=== PATIENT | female | born 1965 | race Caucasian/White ===

== ENCOUNTER 2016-07-22 08:17 | Emergency (ER) | payer OTHER ==
[2016-07-22 08:22] VITALS: BP 103/72
--- NOTE | 2016-07-22 08:29 | ED GENERAL ADULT ---
History of Present Illness General Chief Complaint: General Adult Stated Complaint: MEDICATION REFILL Source: patient, old records Exam Limitations: no limitations Vital Signs & Intake/Output Vital Signs & Intake/Output Vital Signs Date Time Temp Pulse Resp B/P Pulse O2 O2 Flow FiO2 Ox Delivery Rate 07/22 0822 98.3 87 20 103/72 98 Room Air Allergies Coded Allergies: MDX - Propoxyphene (UNKNOWN 02/10/12) Uncoded Allergies: COLD MEDICATION / DECONGESTANTS (Severe, ANAPHYLACTIC SHOCK 02/06/11) ANTIHISTAMINE COMBINATIONS (11/21/10) Reconcile Medications Clonazepam 0.5 MG TABLET 1 TAB PO DAILY anxiety Lamotrigine (Lamictal) 25 MG TABLET 2 TAB PO QHS anxiety/depression Trazodone HCl 100 MG TABLET 1 TAB PO QPM anxiety/sleep Triage Note: PT REQUESTS REFILL ON LOMICTAL, TRAZADONE AND KLONAPIN. [facility]PT WITH [facility] ON Jul Triage Nurses Notes Reviewed? yes Onset: Gradual Duration: day(s): (1) Timing: no prior history Injury Environment: home Severity: moderate Severity Numbers: 5 No Modifying Factors: none HPI: Patient is a 51-year-old female presenting to the emergency department requesting refills on medications that she takes daily. Prescription she is requesting are Lamictal, trazodone and clonazepam. She reports that her son recently kicked out of the house and she was unable to take her medications. She reports that this was in [place]. She is now back in [place]. Her last dose of her medications was 1-2 days ago. Denies any palpitations chest pain nausea vomiting fevers or chills. She made an appointment with [facility] August 04 but was told to come to emergency department medications to hold her over until then. Denies any homicidal or suicidal ideation. Denies any increased depression or anxiety. (LILI NUNN) Past History Travel History Traveled to [place] past 21 day No Medical History Any Pertinent Medical History? see below for history Psychiatric: bipolar disease Pneumonia Vaccine: 03/29/12 Influenza Vaccine: 03/29/12 Surgical History Surgical History: non-contributory Psychosocial History Who do you live with Son Services at Home None What is your primary language Turkmen Tobacco Use: Current Daily Use Daily Tobacco Use Amount/Type: => 5 Cigarettes daily ETOH Use: occasional use Illicit Drug Use: denies illicit drug use Family History Family History, If Any: Relation not specified for: Adopted Hx Contributory? No (LILI NUNN) Review of Systems Review of Systems Constitutional: Reports: no symptoms. Comments Review of systems: See HPI, All other systems negative. Constitutional, no chills fever or weight loss HEENT: No visual changes no sore throat no congestion Cardiovascular: No chest pain ,palpitation Skin, no jaundice no rashes Respiratory: No dyspnea cough sputum or hemoptysis GI: No nausea no vomiting : No dysuria No hematuria Muscle skeletal: no back pain, no neck pain, Neurologic: No numbness no confusion Psych: No increased stress anxiety or depression,. Immunology: No splenectomy or history of AIDS (LILI NUNN) Physical Exam Physical Exam General Appearance: well developed/nourished, no apparent distress, alert, awake , comfortable Comments: Well-developed well-nourished no apparent distress. HEENT: Atraumatic, extraocular motion intact Neck: Supple, no lymphadenopathy Back: Nontender Respiratory: No respiratory distress Extremities: No edema, full range of motion Neuro: Alert and oriented x3 Psych: Mood affect normal, normal memory normal judgment. Core Measures ACS in differential dx? No CVA/TIA Diagnosis: No Severe Sepsis Present: No Septic Shock Present: No (LILI NUNN) Progress Differential Diagnoses I considered the following diagnoses in my evaluation of the patient: Medication refill, medication taking, bipolar disorder, generalized anxiety, major depressive disorder Plan of Care: 07/22/2016 8:42:14 AM patient given enough medications to hold her over until August 04. She was told to return to the emergency department for any worsening symptoms or concerns. Patient not suicidal or homicidal. Patient is mentating well, does not appear anxious. Initial ED EKG: none (LILI NUNN) Departure Departure Time of Disposition: 834 Disposition: HOME OR SELF CARE Condition: Stable Clinical Impression Primary Impression: Medication refill Referrals: ABRAM RAE,BARBY Pineda (PCP/Family) Additional Instructions: Follow-up with your primary care physician and Care as scheduled for August 04. You were given enough medications to hold G over until then. Departure Forms: Customer Survey General Discharge Information Prescriptions: Current Visit Scripts Trazodone HCl 1 TAB PO QPM #14 TAB Clonazepam 1 TAB PO DAILY #14 TAB Lamotrigine (Lamictal) 2 TAB PO QHS #28 TAB (LILI NUNN) PA/LINUX SYSTEMS ANALYST Co-Sign Statement Statement: ED Attending supervision documentation- [] I saw and evaluated the patient. I have also reviewed all the pertinent lab results and diagnostic results. I agree with the findings and the plan of care as documented in the PA's/LINUX SYSTEMS ANALYST's documentation. x I have reviewed the ED Record and agree with the PA's/LINUX SYSTEMS ANALYST's documentation. [] Additions or exceptions (if any) to the PAs/LINUX SYSTEMS ANALYST's note and plan are summarized below: [] (KATLIN RAE,ISABELLE) Critical Care Note Critical Care Note Critical Care Time: non-applicable (LILI NUNN)
[2016-07-22] MEDS ORDERED: TRAZODONE HCL100 M1 PO (08:34)
[2016-07-22] MEDS ORDERED: LAMICTAL25 M1 PO (08:34)
[2016-07-22] MEDS ORDERED: CLONAZEPAM0.5 M2 PO (08:34)
== END 2016-07-22 08:39 ==
LOC: ERH 08:17
DX: Z76.0 Encounter for issue of repeat prescription (principal)
CPT/HCPCS: 99281

== ENCOUNTER 2016-08-04 11:50 | Emergency (ER) | payer OTHER ==
[~2016-08-04] VITALS: Ht 167.6 cm; Wt 75.3 kg
[~2016-08-04 11:50] MED LIST: CLONAZEPAM0.5 M2 PO; LAMICTAL25 M1 PO; TRAZODONE HCL100 M1 PO
[2016-08-04 11:54] VITALS: BP 107/67
[2016-08-04] MEDS ORDERED: MORPHINE SULFAT30 M3 PO (12:35)
[2016-08-04] MEDS ORDERED: NIASPAN500 M1 PO (12:35)
[2016-08-04] MEDS ORDERED: LOVASTATIN40 M1 PO (12:35)
[2016-08-04] MEDS ORDERED: ASPIRIN EC81 M1 PO (12:36)
[2016-08-04] MEDS ORDERED: PANTOPRAZOLE SO40 M1 PO (12:36)
[2016-08-04] MEDS ORDERED: OXYCODONE HCL10 M2 PO (12:36)
[2016-08-04] MEDS ORDERED: LAMICTAL25 M1 PO (13:26)
[2016-08-04] MEDS ORDERED: KLONOPIN0.5 M1 PO (13:26)
[2016-08-04] MEDS ORDERED: TRAZODONE HCL50 M1 PO (13:26)
--- NOTE | 2016-08-04 13:26 | ED GENERAL ADULT ---
History of Present Illness General Chief Complaint: General Adult Stated Complaint: MED REFILL Source: patient Exam Limitations: no limitations Vital Signs & Intake/Output Vital Signs & Intake/Output Vital Signs Date Time Temp Pulse Resp B/P Pulse O2 O2 Flow FiO2 Ox Delivery Rate 08/04 1154 98.2 118 18 107/67 99 Room Air Allergies Coded Allergies: propoxyphene (UNKNOWN 08/04/16) Uncoded Allergies: COLD MEDICATION / DECONGESTANTS (Severe, ANAPHYLACTIC SHOCK 02/06/11) ANTIHISTAMINE COMBINATIONS (11/21/10) Triage Note: 51 Y/O FEMALE STATES SENT HER TO ED FOR REFILL OF: LAMICTAL 50MG DAILY, KLONOPIN 0.5MG DAILY, TRAZADONE 100MG AT NIGHT. STATES SHE IS UNABLE TO SEE DOCTOR UNTIL SEPTEMBER. Triage Nurses Notes Reviewed? yes HPI: This patient is a 51-year-old female with a past medical history including anxiety, chronic headaches, and bipolar disorder who presented to the emergency department today requesting medication refills. The patient reported that she does not have another appointment with until September. She reported that she has an appointment with her primary care physician scheduled for the of this month. She reported that she is currently out of her trazodone, Lamictal, and Klonopin. The patient denied any fevers, current headache, visual changes, chest pain, breathing, or abdominal pain. (CARMEN ROCKWELL,MALLIKA) Reconcile Medications Aspirin (Ecotrin*) 81 MG TABLET.DR 1 TAB PO DAILY HEART HEALTH (Reported) Clonazepam 0.5 MG TABLET 1 TAB PO DAILY anxiety Clonazepam (Klonopin) 0.5 MG TABLET 1 TAB PO DAILY ANXIETY Lamotrigine (Lamictal) 25 MG TABLET 2 TAB PO QHS anxiety/depression Lamotrigine (Lamictal) 25 MG TABLET 2 TAB PO DAILY Lovastatin 40 MG TABLET 1 TAB PO QPM CHOLESTEROL (Reported) with food Morphine Sulfate (Morphine Sulfate ER) 30 MG TABLET.ER 1 TAB PO DAILY PAIN ( Reported) Niacin (Niaspan) 500 MG TAB.ER.24H 1 TAB PO QPM HEART (Reported) Oxycodone HCl 10 MG TABLET 1 TAB PO TID PAIN (Reported) Pantoprazole Sodium 40 MG TABLET.DR 1 TAB PO DAILY GI (Reported) Trazodone HCl 100 MG TABLET 1 TAB PO QPM anxiety/sleep Trazodone HCl 50 MG TABLET 1 TAB PO QPM PRN sleep (JUAN NEAL DO) Past History Travel History Traveled to [place] past 21 day No Medical History Any Pertinent Medical History? see below for history Neurological: migraine EENT: NONE Cardiovascular: NONE Respiratory: NONE Gastrointestinal: NONE Hepatic: NONE Renal: NONE Musculoskeletal: NONE Psychiatric: anxiety, bipolar disease Endocrine: NONE Blood Disorders: NONE Cancer(s): NONE PROFESSOR OF GERMAN/Reproductive: NONE Surgical History Surgical History: non-contributory Psychosocial History Who do you live with Son Services at Home None What is your primary language German Tobacco Use: Current Daily Use Daily Tobacco Use Amount/Type: => 5 Cigarettes daily Family History Family History, If Any: Relation not specified for: Adopted Hx Contributory? No (MALLIKA MORALES PA-C) Review of Systems Review of Systems Constitutional: Reports: no symptoms. EENTM: Reports: no symptoms. Respiratory: Reports: no symptoms. Cardiovascular: Reports: no symptoms. GI: Reports: no symptoms. Genitourinary: Reports: no symptoms. Musculoskeletal: Reports: no symptoms. Skin: Reports: no symptoms. Neurological/Psychological: Reports: no symptoms. All Other Systems: Reviewed and Negative (MALLIKA MORALES PA-C) Physical Exam Physical Exam General Appearance: well developed/nourished, no apparent distress, alert, awake Comments: Well-developed well-nourished person in no acute distress HEENT: Normal EENT exam, head normocephalic, moist mucous membranes Pupils equally round and reactive to light. Neck: Supple, no lymphadenopathy Back: Normal gait Cardiovascular: Regular rate and rhythm with no murmurs, rubs or gallops Respiratory: Chest nontender. No respiratory distress. Breath sounds clear to auscultation bilaterally with no wheezes, rales, rhonchi Extremities: Normal and equal pulses Neuro: Alert oriented x3, cranial nerves II through XII grossly intact. Skin: No appreciable rash on exposed skin, skin is warm and dry. Psych: Mood and affect is normal Core Measures ACS in differential dx? No CVA/TIA Diagnosis: No Severe Sepsis Present: No Septic Shock Present: No (MALLIKA MORALES PA-C) Progress Differential Diagnoses I considered the following diagnoses in my evaluation of the patient: [ medication seeking, medication refill, anxiety, medication reaction] Plan of Care: This patient is a 51 year old female who presented for medication refill of trazodone, Lamictal, and Klonopin. Based on this patient's medication reconciliation, she does not have any active prescriptions for these medications. No other complaints. Stable for discharge home with follow-up with her primary care physician. Initial ED EKG: none (MALLIKA MORALES PA-C) Departure Departure Disposition: HOME OR SELF CARE Condition: Stable Clinical Impression Primary Impression: Medication refill Referrals: BARBY VALVERDE MD (PCP/Family) Additional Instructions: please follow-up with your primary care physician as previously scheduled. Take medication as prescribed. Return for any worsening symptoms or concerns. Departure Forms: Customer Survey General Discharge Information Prescriptions: Current Visit Scripts Trazodone HCl 1 TAB PO QPM PRN sleep #14 TAB Lamotrigine (Lamictal) 2 TAB PO DAILY #28 TAB Clonazepam (Klonopin) 1 TAB PO DAILY #14 TAB (MALLIKA MORALES PA-C) PA/FUR FEEDER Co-Sign Statement Statement: ED Attending supervision documentation- [] I saw and evaluated the patient. I have also reviewed all the pertinent lab results and diagnostic results. I agree with the findings and the plan of care as documented in the PA's/FUR FEEDER's documentation. [X] I have reviewed the ED Record and agree with the PA's/FUR FEEDER's documentation. [] Additions or exceptions (if any) to the PAs/FUR FEEDER's note and plan are summarized below: [] (JUAN NEAL DO) Critical Care Note Critical Care Note Critical Care Time: non-applicable (MALLIKA MORALES PA-C)
== END 2016-08-04 13:29 ==
LOC: ERH 11:50
DX: F41.9 Anxiety disorder, unspecified (principal); Z76.0 Encounter for issue of repeat prescription
CPT/HCPCS: 99281

== ENCOUNTER 2016-08-15 16:08 | Emergency (ER) | payer OTHER ==
[~2016-08-15] VITALS: Ht 167.6 cm; Wt 76.7 kg
[~2016-08-15 16:08] MED LIST changes: +ASPIRIN EC81 M1 PO; +KLONOPIN0.5 M1 PO; +LOVASTATIN40 M1 PO; +MORPHINE SULFAT30 M3 PO; +NIASPAN500 M1 PO; +OXYCODONE HCL10 M2 PO; +PANTOPRAZOLE SO40 M1 PO; +TRAZODONE HCL50 M1 PO
--- NOTE | 2016-08-15 18:04 | ED UPPER/LOWER EXTREMITY COMPL ---
History of Present Illness General Chief Complaint: Upper Extremity Problem Stated Complaint: PT LT SHOULDER HAS PAIN FOR FOUR MONTHS Source: patient Exam Limitations: no limitations Vital Signs & Intake/Output Vital Signs & Intake/Output Vital Signs Date Time Temp Pulse Resp B/P Pulse O2 O2 Flow FiO2 Ox Delivery Rate 08/15 1931 97.6 88 16 134/76 Room Air 08/15 1617 97.9 81 20 128/83 97 Room Air ED Intake and Output 08/16 0000 08/15 1200 Intake Total 0 Output Total Balance 0 Intake, Oral 0 Patient 169 lb Weight Allergies Coded Allergies: propoxyphene (VOMITING VIOLENTLY 08/15/16) Uncoded Allergies: COLD MEDICATION / DECONGESTANTS (Severe, ANAPHYLACTIC SHOCK 02/06/11) ANTIHISTAMINE COMBINATIONS (11/21/10) Reconcile Medications Aspirin (Ecotrin*) 81 MG TABLET.DR 1 TAB PO DAILY HEART HEALTH (Reported) Clonazepam (Klonopin) 0.5 MG TABLET 1 TAB PO DAILY ANXIETY Clonidine HCl (Unknown Strength) TABLET (Unknown Dose) UNKNOWN (Reported) Lamotrigine 100 MG TABLET 1 TAB PO DAILY MENTAL HEALTH (Reported) Lovastatin 40 MG TABLET 1 TAB PO QPM CHOLESTEROL (Reported) with food Methylprednisolone. (Medrol) 4 MG TAB.DS.PK 1 DP PO AD TENDINITIS 6 on day 1 then reduce by one tablet daily until gone Morphine Sulfate (Morphine Sulfate ER) 30 MG TABLET.ER 1 TAB PO DAILY PAIN ( Reported) Niacin (Niaspan) 500 MG TAB.ER.24H 1 TAB PO QPM HEART (Reported) Oxycodone HCl/Acetaminophen (Percocet 5-325 MG Tablet) 5 MG-325 MG TABLET 1 TAB PO Q6HR PRN PAIN Pantoprazole Sodium 40 MG TABLET.DR 1 TAB PO DAILY GI (Reported) Trazodone HCl 150 MG TABLET 1 TAB PO QPM SLEEP (Reported) Triage Note: TRIAGE: PT TO ER C/C PAIN FROM L SHOULDER TO ELBOW AND "SOMETIMES EVEN" TO HER HAND X APPROXIMATELY 4 MONTHS. CONSTANT AND NOW WORSENING SINCE ONSET. HAS TRIED MORPHINE, OXYCODONE, IBUPROFEN AND ACETAMINOPHEN WITH NO RELIEF NOTED. NO KNOWN INJURY. Triage Nurses Notes Reviewed? yes Onset: Gradual Duration: 4 MONTHS Timing: recent history Severity: moderate Severity Numbers: 6 Pain/Injury Location: Right: Shoulder. Method of Injury: unknown Modifying Factors: Improves With: immobilization. Worsens With: movement. HPI: Patient is a 51-year-old female presenting to the emergency department for evaluation of left shoulder pain this been going on for the past 4 months, continuous. She reports that the only time she is not in pain is the first 20 minutes after waking up. Pain is achy throbbing worsened throughout the day. Worse with movement. Denies any specific injury. Shivers that she has not really been evaluated since onset of pain. Has been using [id number] Advil and Tylenol with no relief. She does report an intermittent numbness and tingling in the left shoulder area. Denies any chest pain palpitation shortness of breath. No abdominal pain. Denies any weakness. (LILI NUNN) Past History Travel History Traveled to [place] past 21 day No Medical History Any Pertinent Medical History? see below for history Neurological: migraine EENT: NONE Cardiovascular: hyperlipidemia Respiratory: NONE Gastrointestinal: NONE Hepatic: NONE Renal: NONE Musculoskeletal: osteoarthritis Psychiatric: anxiety, bipolar disease Endocrine: NONE Blood Disorders: NONE Cancer(s): NONE BUSINESS LIBRARIAN/Reproductive: NONE Surgical History Surgical History: non-contributory Psychosocial History Who do you live with Son Services at Home None What is your primary language Estonian Tobacco Use: Current Daily Use Daily Tobacco Use Amount/Type: => 5 Cigarettes daily ETOH Use: occasional use Illicit Drug Use: marijuana Family History Family History, If Any: Relation not specified for: Adopted Hx Contributory? No (LILI NUNN) Review of Systems Review of Systems Constitutional: Reports: no symptoms. Comments Review of systems: See HPI, All other systems negative. Constitutional, no chills fever or weight loss HEENT: No visual changes no sore throat no congestion Cardiovascular: No chest pain ,palpitation Skin, no jaundice no rashes Respiratory: No dyspnea cough sputum or hemoptysis GI: No nausea no vomiting : No dysuria No hematuria Muscle skeletal: no back pain, no neck pain, Neurologic: No numbness no confusion Psych: No stress anxiety Immunology: No splenectomy or history of AIDS (LILI NUNN) Physical Exam Physical Exam General Appearance: well developed/nourished, no apparent distress, alert, awake , comfortable Comments: Well-developed well-nourished person in no acute distress HEENT: Pupils equally round and reactive to light and accommodation. Nose is atraumatic. Neck: No C-spine tenderness, full range of motion. No cervical paraspinal muscle tenderness. Full range of motion. Back: Nontender Cardiovascular: normal JVP, radial pulses are 2+ bilaterally. Respiratory: No respiratory distress.breath sounds clear to auscultation bilaterally Extremity: No edema, limited range of motion of left shoulder secondary to pain. Pain to palpation over the left bicep tendon. Pain to palpation over the left AC joint. Pain with left shoulder abduction approximately 45. Neuro: Alert oriented x3, motor and sensory intact in upper extremities. Skin: No appreciable rash on exposed skin, skin is warm and dry. Psych: Mood and affect is normal, memory and judgment is normal. (RAFFY GOMEZ,LILI) Progress Differential Diagnosis: contusion, dislocation, fracture, sprain, tendon injury, CALCIFIC TENDINITIS, FROZEN SHOULDER, ROTATOR CUFF INJURY Plan of Care: Orders Procedure Date/time Status Durable Medical Equipment 08/15 2009 Active Diagnostic Imaging: Viewed by Me: Radiology Read. Discussed w/RAD: Radiology Read. Radiology Impression: PATIENT: CHASIDY NORMAN PRESENT AGE: 51 PATIENT ACCOUNT NO: [id number] : 64 LOCATION: [facility] ORDERING PHYSICIAN: LILI GOMEZ SERVICE DATE: 08/15/16 EXAM TYPE: RAD - XRY-SHOULDER COMPLETE-LEFT EXAMINATION: XR SHOULDER, LEFT CLINICAL INFORMATION: Calcific tendinitis COMPARISON: Left shoulder 04/10/2009. TECHNIQUE : 3 views. FINDINGS: No soft tissue calcification. No calcific tendinosis or bursitis. The glenohumeral joint is normal. The acromioclavicular joint is normal. Mild subchondral sclerosis of the greater tuberosity of the humeral head unchanged since prior study. The glenohumeral joint and the acromioclavicular joint is normal. IMPRESSION: No acute abnormality. No soft tissue calcification to suggest calcific tendinosis or calcific bursitis. Comments: 08/15/2016 6:26:23 PM arrival patient medicated time Toradol. Patient has history of chronic pain in the left shoulder. Limited range of motion on exam. Patient will go for x-ray to rule out arthritis versus calcific tendinitis. 08/15/2016 8:16:50 PM patient formed of x-ray results. She reports that Toradol did not help. Patient given by mouth Percocet and a sling. She'll follow-up with orthopedics. She is not driving home. (LILI NUNN) Departure Departure Time of Disposition: 2016 Disposition: HOME OR SELF CARE Condition: Stable Clinical Impression Primary Impression: Shoulder pain Qualifiers: Laterality: left Chronicity: chronic Qualified Codes: M25.512 - Pain in left shoulder; G89.29 - Other chronic pain Referrals: ALICIA RAE,DAKOTA VALVERDE MD,BARBY Pineda (PCP/Family) Additional Instructions: Follow-up with orthopedics call to make an appointment. Take Medrol Dosepak as prescribed and help with inflammation and pain. Wear sling for comfort. Return for worsening symptoms or concerns. Departure Forms: Customer Survey General Discharge Information Prescriptions: Current Visit Scripts Methylprednisolone. (Medrol) 1 DP PO AD #1 DP 6 on day 1 then reduce by one tablet daily until gone Oxycodone HCl/Acetaminophen (Percocet 5-325 MG Tablet) 1 TAB PO Q6HR PRN PAIN #10 TAB (LILI NUNN) PA/PLAYGROUND MONITOR Co-Sign Statement Statement: ED Attending supervision documentation- [] I saw and evaluated the patient. I have also reviewed all the pertinent lab results and diagnostic results. I agree with the findings and the plan of care as documented in the PA's/PLAYGROUND MONITOR's documentation. [X] I have reviewed the ED Record and agree with the PA's/PLAYGROUND MONITOR's documentation. [] Additions or exceptions (if any) to the PAs/PLAYGROUND MONITOR's note and plan are summarized below: [] (KAEL RAE,BRENDA Kirkland) Procedures Splinting Location: LEFT SHOULDER Manual Alignment Performed: No Pre-Made Type: velcro Splint: SLING Splint Applied By: splint applied by other (NURSING) Pre-Proc Neuro Vasc Exam: normal Post-Proc Neuro Vasc Exam: normal Progress: Patient tolerated procedure well. (LILI NUNN)
[2016-08-15] MEDS ORDERED: MEDROL4 M2 PO (18:32)
[2016-08-15] MEDS ORDERED: TRAZODONE HCL150 M1 PO (18:49)
[2016-08-15] MEDS ORDERED: LAMOTRIGINE100 M2 PO (18:49)
[2016-08-15] MEDS ORDERED: CLONIDINE HCL0.1 MG (18:50)
[2016-08-15 19:31] VITALS: BP 134/76
--- NOTE | 2016-08-15 20:11 | RADIOLOGY REPORT ---
EXAMINATION: XR SHOULDER, LEFT CLINICAL INFORMATION: Calcific tendinitis COMPARISON: Left shoulder 04/10/2009. TECHNIQUE: 3 views. FINDINGS: No soft tissue calcification. No calcific tendinosis or bursitis. The glenohumeral joint is normal. The acromioclavicular joint is normal. Mild subchondral sclerosis of the greater tuberosity of the humeral head unchanged since prior study. The glenohumeral joint and the acromioclavicular joint is normal. IMPRESSION: No acute abnormality. No soft tissue calcification to suggest calcific tendinosis or calcific bursitis.
[2016-08-15] MEDS ORDERED: PERCOCET 5-3251 EACH PO (20:18)
== END 2016-08-15 20:28 ==
LOC: ERH 16:08
DX: M25.512 Pain in left shoulder (principal)
CPT/HCPCS: 73030-LT; 96372; J1885

== ENCOUNTER 2016-09-08 09:05 | Emergency (ER) | payer OTHER ==
[~2016-09-08] VITALS: Ht 167.6 cm; Wt 75.8 kg
[~2016-09-08 09:05] MED LIST changes: +CLONIDINE HCL0.1 MG; +LAMOTRIGINE100 M2 PO; +MEDROL4 M2 PO; +PERCOCET 5-3251 EACH PO; +TRAZODONE HCL150 M1 PO
[2016-09-08 09:09] VITALS: BP 132/87
--- NOTE | 2016-09-08 09:50 | ED UPPER/LOWER EXTREMITY COMPL ---
History of Present Illness General Chief Complaint: Shoulder Injury Stated Complaint: SHOULDER PAIN Source: patient Exam Limitations: no limitations Vital Signs & Intake/Output Vital Signs & Intake/Output Vital Signs Date Time Temp Pulse Resp B/P Pulse O2 O2 Flow FiO2 Ox Delivery Rate 09/08 0909 97.4 103 18 132/87 98 Room Air Allergies Coded Allergies: propoxyphene (VOMITING VIOLENTLY 08/15/16) Uncoded Allergies: COLD MEDICATION / DECONGESTANTS (Severe, ANAPHYLACTIC SHOCK 02/06/11) ANTIHISTAMINE COMBINATIONS (11/21/10) Reconcile Medications Aspirin (Ecotrin*) 81 MG TABLET.DR 1 TAB PO DAILY HEART HEALTH (Reported) Clonazepam (Klonopin) 0.5 MG TABLET 1 TAB PO DAILY ANXIETY Clonidine HCl (Unknown Strength) TABLET (Unknown Dose) UNKNOWN (Reported) Cyclobenzaprine HCl 10 MG TABLET 1 TAB PO QPM PRN muscle spasms Lamotrigine 100 MG TABLET 1 TAB PO DAILY MENTAL HEALTH (Reported) Lovastatin 40 MG TABLET 1 TAB PO QPM CHOLESTEROL (Reported) with food Naproxen (Naprosyn) 500 MG TABLET 1 TAB PO BID PRN pain Niacin (Niaspan) 500 MG TAB.ER.24H 1 TAB PO QPM HEART (Reported) Pantoprazole Sodium 40 MG TABLET.DR 1 TAB PO DAILY GI (Reported) Trazodone HCl 150 MG TABLET 1 TAB PO QPM SLEEP (Reported) Triage Note: 51 Y/O FEMALE C/O L SHOULDER PAIN SINCE YESTERDAY - "I HAVE ARTHRITIS, MY NIECE HUGGED ME YESTERDAY AND I'VE HAD PAIN SINCE". DENIES OTHER TRAUMA. STATES ARM FEELS "NUMB" FROM ELBOW DOWN WITH PAIN IN L SHOULDER AREA. Triage Nurses Notes Reviewed? yes Onset: Gradual Duration: day(s): (1) Timing: recent history Severity: moderate Severity Numbers: 6 Pain/Injury Location: Left: Shoulder. Method of Injury: recent pain in left shoulder Modifying Factors: Improves With: immobilization. HPI: Patient is a 51-year-old female with history of chronic left shoulder pain coming in today for worsening left pain over the past day. She reports that her niece gave her a hug yesterday and made the pain worse. Pain worse with palpation and movement. Tried her ibuprofen that she has a home with little relief. She also reports intermittent numbness tingling in the shoulder region. No chest pain palpitations shortness of breath. No abdominal pain. Pain worse with movement. She did not follow-up with orthopedicshe was directed to after her last visit to the emergency Department for the same pain. (LILI NUNN) Past History Travel History Traveled to [place] past 21 day No Medical History Any Pertinent Medical History? 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 No (LILI NUNN) Review of Systems Review of Systems Constitutional: Reports: no symptoms. Comments Review of systems: See HPI, All other systems negative. Constitutional, no chills fever or weight loss HEENT: No visual changes no sore throat no congestion Cardiovascular: No chest pain ,palpitation Skin, no jaundice no rashes Respiratory: No dyspnea cough sputum or hemoptysis GI: No nausea no vomiting Muscle skeletal: no back pain, no neck pain, Neurologic: no rosen no confusion Psych: No stress anxiety or depression,. Heme/endocrine: No bruising no bleeding no polyuria or polydipsia Immunology: No splenectomy or history of AIDS (LILI NUNN) Physical Exam Physical Exam General Appearance: well developed/nourished, no apparent distress, alert, awake , comfortable Comments: Well-developed well-nourished person in no acute distress HEENT: Pupils equally round and reactive to light and accommodation. Nose is atraumatic. Neck: Supple, no lymphadenopathy, normal range of motion without pain or tenderness Back: Nontender Cardiovascular: Regular rate and rhythms no murmurs rubs or gallops, normal JVP Respiratory: Chest nontender. No respiratory distress.breath sounds clear to auscultation bilaterally Extremity: No edema, radial pulses intact in upper ext. tender to palpation over the left ac joint and anterior shoulder. full rom of left upper ext. strength is 5/5 in upper ext bilaterally. Neuro: Alert oriented x3, motor sensory normal in upper ext. Skin: No appreciable rash on exposed skin, skin is warm and dry. Psych: Mood and affect is normal, memory and judgment is normal. (LILI NUNN) Progress Differential Diagnosis: contusion, dislocation, fracture, sprain Plan of Care: Patient has history of chronic left shoulder pain. It could be that when she was hugged the pain became exacerbated causing increased inflammation and causing the intermittent numbness and tingling. Patient is neurologically intact. Careful range of motion with some discomfort. Patient is to follow-up with orthopedics for further evaluation with MRI if symptoms persist. She'll be started on anti-inflammatory muscle relaxer. Patient nontoxic. (LILI NUNN) Departure Departure Time of Disposition: 1009 Disposition: HOME OR SELF CARE Condition: Stable Clinical Impression Primary Impression: Shoulder pain Qualifiers: Laterality: left Chronicity: chronic Qualified Codes: M25.512 - Pain in left shoulder; G89.29 - Other chronic pain Referrals: ALICIA RAE,DAKOTA VALVERDE MD,BARBY Pineda (PCP/Family) Additional Instructions: follow up with orthopedic call to make appt. take mobic and flexeril as prescribed. return for worsening symptoms or concerns. Departure Forms: Customer Survey General Discharge Information Prescriptions: Current Visit Scripts Naproxen (Naprosyn) 1 TAB PO BID PRN pain #15 TAB Cyclobenzaprine HCl 1 TAB PO QPM PRN muscle spasms #20 TAB (LILI NUNN) PA/CHILD AND FAMILY COUNSELOR Co-Sign Statement Statement: ED Attending supervision documentation- [] I saw and evaluated the patient. I have also reviewed all the pertinent lab results and diagnostic results. I agree with the findings and the plan of care as documented in the PA's/CHILD AND FAMILY COUNSELOR's documentation. [X] I have reviewed the ED Record and agree with the PA's/CHILD AND FAMILY COUNSELOR's documentation. [] Additions or exceptions (if any) to the PAs/CHILD AND FAMILY COUNSELOR's note and plan are summarized below: [] (JUAN NEAL DO
[2016-09-08] MEDS ORDERED: CYCLOBENZAPRINE10 M1 PO (10:13)
[2016-09-08] MEDS ORDERED: NAPROSYN500 M1 PO (10:13)
== END 2016-09-08 10:28 ==
LOC: ERH 09:05
DX: M25.512 Pain in left shoulder (principal)

== ENCOUNTER 2016-10-18 10:24 | Emergency (ER) | payer OTHER ==
[~2016-10-18] VITALS: Ht 167.6 cm; Wt 70.3 kg
[~2016-10-18 10:24] MED LIST changes: +CYCLOBENZAPRINE10 M1 PO; +NAPROSYN500 M1 PO
--- NOTE | 2016-10-18 11:40 | ED HEADACHE COMPLAINT ---
History of Present Illness General Chief Complaint: Headache Stated Complaint: DURAN X 2 DAYS Source: patient, old records Exam Limitations: no limitations Vital Signs & Intake/Output Vital Signs & Intake/Output Vital Signs Date Time Temp Pulse Resp B/P B/P Pulse O2 O2 Flow FiO2 Mean Ox Delivery Rate 10/18 1305 98.7 86 18 126/78 98 Room Air 10/18 1028 98.2 102 16 153/92 97 Room Air Allergies Coded Allergies: amitriptyline (Severe, rash 10/18/16) propoxyphene (VOMITING VIOLENTLY 08/15/16) Uncoded Allergies: COLD MEDICATION / DECONGESTANTS (Severe, ANAPHYLACTIC SHOCK 02/06/11) ANTIHISTAMINE COMBINATIONS (11/21/10) Reconcile Medications Aspirin (Ecotrin*) 81 MG TABLET.DR 1 TAB PO DAILY HEART HEALTH (Reported) Clonazepam (Klonopin) 0.5 MG TABLET 1 TAB PO DAILY ANXIETY Clonidine HCl (Unknown Strength) TABLET (Unknown Dose) UNKNOWN (Reported) Clonidine HCl 0.1 MG TABLET 1 TAB PO QPM SLEEP AIDE (Reported) Hydrocodone/Acetaminophen (Vicodin 5-300 MG Tablet) 5 MG-300 MG TABLET 1 TAB PO Q6HR PRN pain Lamotrigine 100 MG TABLET 1 TAB PO DAILY MENTAL HEALTH (Reported) Lovastatin 40 MG TABLET 1 TAB PO QPM CHOLESTEROL (Reported) with food Naproxen (Naprosyn) 500 MG TABLET 1 TAB PO BID PRN pain Niacin (Niaspan) 500 MG TAB.ER.24H 1 TAB PO QPM HEART (Reported) Pantoprazole Sodium 40 MG TABLET.DR 1 TAB PO DAILY GI (Reported) Trazodone HCl 150 MG TABLET 1 TAB PO QPM SLEEP (Reported) Triage Note: 51 WITH IBUPROPHEN, COFFEE, CHOCOLATE, HOT SHOWERS OR NAPROSYN. PT STATES PAIN IS NOW IN NECK/SHOULDERS, "FROM THE TENSION". REPORTS NAUSEA AND PHOTOPHOBIA. Triage Nurses Notes Reviewed? yes Onset: Gradual Duration: day(s): (2) Timing: recent history Quality/Severity: moderate Severity Numbers: 8 Head Injury Location: frontal Modifying Factors: Improves With: other (vicodin). HPI: Patient is a 51-year-old female with history of headaches presenting to the emergency Department chief complaint of headache. She reports that his been going on for the past 2-3 days. Headache is located more on the left side of her head. Extends down past her left ear. Pain is achy and throbbing currently moderate. She has been taking ibuprofen [id number] with no relief. She also reports intermittent photophobia. Positive nausea but no vomiting. She reports headaches like this before but this feels worse. Denies any trauma or falls. History of brain surgery 24 years ago and since then she's had headaches. Denies any weakness. No fevers or chills. No neck pain. Past History Travel History Traveled to [place] past 21 day No Medical History Any Pertinent Medical History? 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 No Review of Systems Review of Systems Constitutional: Reports: no symptoms. Comments Review of systems: See HPI, All other systems negative. Constitutional, no chills fever or weight loss HEENT: no sore throat no congestion Cardiovascular: No chest pain ,palpitation Skin, no jaundice no rashes Respiratory: No dyspnea cough sputum or hemoptysis GI: no vomiting : No dysuria No hematuria Muscle skeletal: no back pain, no neck pain, Neurologic: No numbness no confusion Psych: No stress anxiety or depression,. Heme/endocrine: No bruising no bleeding no polyuria or polydipsia Immunology: No splenectomy or history of AIDS Physical Exam Physical Exam General Appearance: well developed/nourished, no apparent distress, alert, awake , comfortable Cranial Nerves: cn 2- 12 intact Comments: Well-developed well-nourished person in no acute distress HEENT: extraocular motion intact, no nystagmus. Pupils equally round and reactive to light and accommodation. Nose is atraumatic. External auditory canal and Tympanic membranes clear. Pharynx normal. No swelling or edema. Mild tenderness to palpation over the left frontal sinus. Neck: Supple, no lymphadenopathy, normal range of motion without pain or tenderness, negative Kernig's, negative Brudzinski's. Back: Nontender Cardiovascular: Regular rate and rhythms no murmurs rubs or gallops, normal JVP Respiratory: Chest nontender. No respiratory distress.breath sounds clear to auscultation bilaterally Extremity: No edema, no calf tenderness to palpation, normal and equal pulses. Muscular strength is 5 out of 5 in all extremities. Retail Director strength is equal and symmetric bilaterally. Neuro: Alert oriented x3, motor sensory normal, cranial nerves II through XII grossly intact. Cerebellar testing is unremarkable. Able to perform rapid alternating hand movements following with [id number] testing without difficulty. Skin: No appreciable rash on exposed skin, skin is warm and dry. Psych: Mood and affect is normal, memory and judgment is normal. Core Measures Severe Sepsis Present: No Septic Shock Present: No Progress Differential Diagnosis: cluster DURAN, migraine DURAN, musculoskeletal pain, sinusitis , subarach. Hem., tension DURAN, temporal arteritis Plan of Care: Orders Procedure Date/time Status WESTERGREN SED RATE 10/18 1210 Complete COMPREHENSIVE METABOLIC PANEL 10/18 1210 Complete CBC WITHOUT DIFFERENTIAL 10/18 121 Complete Laboratory Tests 10/18/16 1219: Anion Gap 11, Estimated GFR > 60, BUN/Creatinine Ratio 17.5, Glucose 101 H, Calcium 9.7, Total Bilirubin 0.5, AST 24, ALT 40, Alkaline Phosphatase 89, Total Protein 7.0, Albumin 4.3, Globulin 2.7, Albumin/Globulin Ratio 1.6, CBC w Diff NO MAN DIFF REQ, RBC 4.71, MCV 90.9, MCH 30.9, RDW 14.4, MPV 8.1, Gran % 57.5, Lymphocytes % 33.6, Monocytes % 5.4, Eosinophils % 3.3, Basophils % 0.2, Absolute Granulocytes 6.0, Absolute Lymphocytes 3.5 H, Absolute Monocytes 0.6, Absolute Eosinophils 0.3, Absolute Basophils 0, PUBS MCHC 34.0, ESR Westergren 25 H Diagnostic Imaging: Viewed by Me: CT Scan. Discussed w/RAD: CT Scan. Radiology Impression: PATIENT: CHASIDY NORMAN PRESENT AGE: 51 PATIENT ACCOUNT NO: [id number] : 64 LOCATION: [facility] ORDERING PHYSICIAN: LILI GOMEZ SERVICE DATE: 10/18/16-1210 EXAM TYPE: CAT - CT HEAD WO IV CONTRAST EXAMINATION: CT HEAD WITHOUT CONTRAST CLINICAL INFORMATION: Worsening headaches. COMPARISON: Head CT from 04/25/2015 TECHNIQUE: Contiguous axial imaging was performed from the skull base to vertex without intravenous administration of contrast. DLP: 600.71 mGy-cm FINDINGS: Again noted is the left frontotemporal craniotomy and focal encephalomalacia/ gliosis of the anterior left temporal lobe. No acute intracranial hemorrhage, extra-axial fluid collection, focal mass effect or midline shift. There is an area of chronic gyriform calcification in the left parietal lobe. The greene-white matter differentiation is maintained. The ventricles have normal size and configuration. No acute findings within the posterior fossa. The visualized paranasal sinuses, mastoid air cells and middle ear cavities are well aerated. The temporomandibular joints are unremarkable. IMPRESSION: No acute intracranial pathology compared to 04/25/2015. DICTATED BY: SUSI LANGLEY MD DATE/TIME DICTATED:10/18/161318 REPAIR COIL WINDER:LYNN DATE/TIME TRANSCRIBED:1318 CONFIDENTIAL, DO NOT COPY WITHOUT APPROPRIATE AUTHORIZATION. < Electronically signed in Other Vendor System> SIGNED BY: SUSI LANGLEY MD 10/18/16 1321 Comments: Patient reports several resolution of symptoms after 2 Vicodin tablets. Patient seen and evaluated in the emergency department several times for chronic pain including headaches. She is afebrile, no elevation in white blood cell count, negative Kernig's, negative Brudzinski's. I think that this headache is likely chronic issue for this patient. She'll follow up with primary care physician and will follow-up with neurology if symptoms persist. She'll return for worsening symptoms or concerns. I do not think this patient has any type of intracranial bleeding as patient reports headaches like this in the past. She is neurologically intact with no deficits. Departure Departure Time of Disposition: 1408 Disposition: HOME OR SELF CARE Condition: Stable Clinical Impression Primary Impression: Chronic headaches Qualifiers: Headache type: unspecified Intractability: not intractable Qualified Code: R51 - Headache Ruled Out Impressions: Headaches due to old head injury Referrals: ABRAM RAE,BARBY Pineda (PCP/Family) Additional Instructions: Follow-up with neurology call to make an appointment. Take Vicodin as prescribed for severe. Return for worsening symptoms or concerns. Departure Forms: Customer Survey General Discharge Information Prescriptions: Current Visit Scripts Hydrocodone/Acetaminophen (Vicodin 5-300 MG Tablet) 1 TAB PO Q6HR PRN pain #10 TAB
[2016-10-18] MEDS ORDERED: CLONIDINE HCL0.1 MG PO (11:42)
[2016-10-18 12:27] LABS: ABSOLUTE BASOPHIL COUNT 0 /CUMM (0.0-0.2); ABSOLUTE EOSINOPHIL COUNT 0.3 /CUMM (0.0-0.7); ABSOLUTE LYMPH COUNT 3.5 /CUMM (1.2-3.4); ABSOLUTE MONOCYTE COUNT 0.6 /CUMM (0.10-0.60); BASOPHIL % 0.2 % (0.0-2.0); EOSINOPHIL % 3.3 % (0-5); GRANULOCYTE % 57.5 % (42.2-75.2); HEMATOCRIT 42.8 % (37-47); MEAN CORPUSCULAR HGB 30.9 PG (27.0-31.0); MEAN CORPUSCULAR VOLUME 90.9 FL (81.0-99.0); MEAN PLATELET VOLUME 8.1 FL (7.4-10.4); PLATELET COUNT 316 /CUMM (130-400); RBC DISTRIBUTION WIDTH 14.4 % (11.5-14.5); RED BLOOD CELL CT 4.71 /CUMM (4.20-5.40); WHITE BLOOD CELL COUNT 10.5 /CUMM (4.8-10.8)
[2016-10-18 13:05] VITALS: BP 126/78
--- NOTE | 2016-10-18 13:27 | CT SCAN REPORT ---
EXAMINATION: CT HEAD WITHOUT CONTRAST CLINICAL INFORMATION: Worsening headaches. COMPARISON: Head CT from 04/25/2015 TECHNIQUE: Contiguous axial imaging was performed from the skull base to vertex without intravenous administration of contrast. DLP: 600.71 mGy-cm FINDINGS: Again noted is the left frontotemporal craniotomy and focal encephalomalacia/gliosis of the anterior left temporal lobe. No acute intracranial hemorrhage, extra-axial fluid collection, focal mass effect or midline shift. There is an area of chronic gyriform calcification in the left parietal lobe. The greene-white matter differentiation is maintained. The ventricles have normal size and configuration. No acute findings within the posterior fossa. The visualized paranasal sinuses, mastoid air cells and middle ear cavities are well aerated. The temporomandibular joints are unremarkable. IMPRESSION: No acute intracranial pathology compared to 04/25/2015.
[2016-10-18] MEDS ORDERED: VICODIN 5-3001 EACH PO (14:10)
== END 2016-10-18 14:24 ==
LOC: ERH 10:24
PROVIDERS: Physician Assistant
DX: R51 Headache (principal)

== ENCOUNTER 2016-12-14 17:29 | Emergency (ER) | payer OTHER ==
[~2016-12-14] VITALS: Ht 167.6 cm; Wt 71.2 kg
[~2016-12-14 17:29] MED LIST changes: +CLONIDINE HCL0.1 MG PO; +VICODIN 5-3001 EACH PO
--- NOTE | 2016-12-14 19:15 | ED HEADACHE COMPLAINT ---
History of Present Illness General Chief Complaint: Headache Stated Complaint: PT HAS A MIGRAINE Source: patient, family Exam Limitations: no limitations Vital Signs & Intake/Output Vital Signs & Intake/Output Vital Signs Date Time Temp Pulse Resp B/P B/P Pulse O2 O2 Flow FiO2 Mean Ox Delivery Rate 12/14 1958 96.5 72 24 138/71 97 Room Air 12/14 1938 96 Room Air 12/14 1735 97.5 85 15 114/74 97 Room Air Room Air ED Intake and Output 12/15 0000 12/14 1200 Intake Total Output Total Balance Patient 157 lb Weight Weight Reported by Patient Measurement Method Allergies Coded Allergies: amitriptyline (Severe, rash 12/14/16) propoxyphene (VOMITING VIOLENTLY 12/14/16) Uncoded Allergies: COLD MEDICATION / DECONGESTANTS (Severe, ANAPHYLACTIC SHOCK 02/06/11) ANTIHISTAMINE COMBINATIONS (11/21/10) Reconcile Medications Aspirin (Ecotrin*) 81 MG TABLET.DR 1 TAB PO DAILY HEART HEALTH (Reported) Benztropine Mesylate 0.5 MG TABLET 1 TAB PO QPM MENTAL HEALTH (Reported) Butalb/Acetaminophen/Caffeine (Fioricet 50-300-40 MG Capsule) 50 MG-300 MG-40 MG CAPSULE 1 TAB PO TID PRN HEADACHE Clonidine HCl (Unknown Strength) TABLET (Unknown Dose) UNKNOWN (Reported) Clonidine HCl 0.1 MG TABLET 1 TAB PO QPM SLEEP AIDE (Reported) Haloperidol 1 MG TABLET 1 TAB PO QPM MENTAL HEALTH (Reported) Ketorolac Tromethamine 10 MG TABLET 1 TAB PO TID PRN MIGRAINE Lamotrigine 100 MG TABLET 1 TAB PO DAILY MENTAL HEALTH (Reported) Lovastatin 40 MG TABLET 1 TAB PO QPM CHOLESTEROL (Reported) with food Naproxen (Naprosyn) 500 MG TABLET 1 TAB PO BID PRN pain Niacin (Niaspan) 500 MG TAB.ER.24H 1 TAB PO QPM HEART (Reported) Pantoprazole Sodium 40 MG TABLET.DR 1 TAB PO DAILY GI (Reported) Sumatriptan Succinate (Imitrex) 50 MG TABLET 1 TAB PO AD PRN HEADACHE TAKE ONE TAB, IF NO BETTER IN 30 MINUTES, REPEAT, DO NOT EXCEED TWO TABS IN ONE DAY Triage Note: PT TO ED FOR C/C OF MIGRAINE THAT STARTED TWO DAYS AGO. +PHOTOSENSITIVITY AND SENSITIVE TO SOUND. +BLURRY VISION. -NAUSEA. HX OF HEADACHES. HAS BEEN TAKING ALEVE WITHOUT ANY RELIEF AT HOME. Triage Nurses Notes Reviewed? yes Onset: Gradual Duration: constant Timing: recent history Quality/Severity: severe, pressure Severity Numbers: 7 HPI: Patient is a 51-year-old female with a past medical history of left-sided meningioma with craniectomy performed approximately 20 years ago, patient states as well she has unequal pupils with the left side more dilated than the right due to the procedure as stated above and subsequent chronic migraines since. Patient is complaining of a gradual onset of a 2 day history of right-sided migraine headache where she has associated symptoms of photophobia patient tried taking previously prescribed naproxen with no RELIEF Patient states that usually her headache is on the left side however today the headache concerns are localized to the right temporal region (RAFAEL COTA) Past History Travel History Traveled to [place] past 21 day No Medical History Any Pertinent Medical History? 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 No (RAFAEL COTA) Review of Systems Review of Systems Constitutional: Reports: no symptoms. Eyes: Reports: see HPI, photophobia. Ears, Nose, Throat, Mouth: Reports: no symptoms. Respiratory: Reports: no symptoms. Cardiovascular: Reports: no symptoms. Gastrointestinal/Abdominal: Reports: no symptoms. Genitourinary: Reports: no symptoms. Musculoskeletal: Reports: no symptoms. Skin: Reports: no symptoms. Neurological/Psychological: Reports: see HPI, headache. Hematologic/Endocrine: Reports: no symptoms. Endocrine: Reports: no symptoms. Immunologic/Allergic: Reports: no symptoms. All Other Systems: Reviewed and Negative (RAFAEL COTA) Physical Exam Physical Exam General Appearance: no apparent distress, alert Cranial Nerves: normal hearing, normal speech, PERRL Comments: Well-developed well-nourished person in no acute distress HEENT: m, extraocular motion intact, no nystagmus. Pupils UNequally round left pupil larger than right and reactive to light and accommodation. Nose is atraumatic. External auditory canal and Tympanic membranes clear. Pharynx normal. No swelling or edema. Neck: Supple, no lymphadenopathy, normal range of motion without pain or tenderness Back: Nontender, no CVA tenderness. Cardiovascular: Regular rate and rhythms no murmurs rubs or gallops, normal JVP Respiratory: Chest nontender. No respiratory distress.breath sounds clear to auscultation bilaterally Abdomen: Soft, nontender nondistended, no appreciable organomegaly. Normal bowel sounds. No ascites Extremity: No edema, no calf tenderness to palpation, normal and equal pulses. Neuro: Alert oriented x3, motor sensory normal, cranial nerves II through XII grossly intact. Negative cerebellar testing negative Romberg Skin: No appreciable rash on exposed skin, skin is warm and dry. Psych: Mood and affect is normal, memory and judgment is normal. Core Measures Severe Sepsis Present: No Septic Shock Present: No (TIFFANY GOMEZ,RAFAEL) Progress Differential Diagnosis: carotid dissection, cav sinus thromb, cluster DURAN, encephalitis, IC mass/tumor, intracranial Hem., meningitis, migraine DURAN, musculoskeletal pain, sinusitis, SSS thrombosis, subarach. Hem., tension DURAN, temporal arteritis, TMJ syndrome, viral cephalgia Plan of Care: Current Medications Sig/Martin Start time Last Medication Dose Stop Time Status Admin Ketorolac 30 MG ONCE ONE 12/15 1999 UNVr Tromethamine 12/14 2000 (Toradol) Is dictated below of previous CT scan in September and which my suspicion of NEW ONSET meningioma would be area low Patient on initial examination was in no apparent distress nontoxic-appearing and denies any signs or symptoms of subarachnoid hemorrhage or ICH. Besides the anisocoria known to patient from previous craniectomy patient's physical exam was unremarkable. PATIENT: HCASIDY NORMAN PRESENT AGE: 51 PATIENT ACCOUNT NO: [id number] : 64 LOCATION: [facility] ORDERING PHYSICIAN: LILI GOMEZ SERVICE DATE: 10/18/16-1210 EXAM TYPE: CAT - CT HEAD WO IV CONTRAST EXAMINATION: CT HEAD WITHOUT CONTRAST CLINICAL INFORMATION: Worsening headaches. COMPARISON: Head CT from 04/25/2015 TECHNIQUE: Contiguous axial imaging was performed from the skull base to vertex without intravenous administration of contrast. DLP: 600.71 mGy-cm FINDINGS: Again noted is the left frontotemporal craniotomy and focal encephalomalacia/gliosis of the anterior left temporal lobe. No acute intracranial hemorrhage, extra-axial fluid collection, focal mass effect or midline shift. There is an area of chronic gyriform calcification in the left parietal lobe. The greene-white matter differentiation is maintained. The ventricles have normal size and configuration. No acute findings within the posterior fossa. The visualized paranasal sinuses, mastoid air cells and middle ear cavities are well aerated. The temporomandibular joints are unremarkable. IMPRESSION: No acute intracranial pathology compared to 04/25/2015. (RAFAEL COTA) Departure Departure Disposition: HOME OR SELF CARE Condition: Stable Clinical Impression Primary Impression: Migraine Referrals: ABRAM RAE,BARBY Pineda (PCP/Family) Additional Instructions: As discussed begin the prescription of ketorolac for headaches, begin a prescription Imitrex for secondary relief if no better and begin the prescription of Fioricet for breakthrough headache relief. Prescription is waiting a [facility] pharmacy. If no better in 2 days follow-up with your primary care doctor. If symptoms worsen return to emergency room continue home medications as directed Departure Forms: Customer Survey General Discharge Information Prescriptions: Current Visit Scripts Ketorolac Tromethamine 1 TAB PO TID PRN MIGRAINE #15 TAB Sumatriptan Succinate (Imitrex) 1 TAB PO AD PRN HEADACHE #9 TAB TAKE ONE TAB, IF NO BETTER IN 30 MINUTES, REPEAT, DO NOT EXCEED TWO TABS IN ONE DAY Butalb/Acetaminophen/Caffeine (Fioricet 50-300-40 MG Capsule) 1 TAB PO TID PRN HEADACHE #12 TAB (RAFAEL COTA) PA/ENTRY LEVEL DRAFTER Co-Sign Statement Statement: ED Attending supervision documentation- [] I saw and evaluated the patient. I have also reviewed all the pertinent lab results and diagnostic results. I agree with the findings and the plan of care as documented in the PA's/ENTRY LEVEL DRAFTER's documentation. [x] I have reviewed the ED Record and agree with the PA's/ENTRY LEVEL DRAFTER's documentation. [] Additions or exceptions (if any) to the PAs/ENTRY LEVEL DRAFTER's note and plan are summarized below: [] (KAEL RAE,BRENDA Kirkland)
[2016-12-14] MEDS ORDERED: BENZTROPINE ME0.5 M1 PO (19:35)
[2016-12-14] MEDS ORDERED: HALOPERIDOL1 M1 PO (19:36)
[2016-12-14] MEDS ORDERED: IMITREX50 M1 PO (19:58)
[2016-12-14] MEDS ORDERED: FIORICET 50-301 EACH PO (19:58)
[2016-12-14] MEDS ORDERED: KETOROLAC TROME10 M1 PO (19:58)
[2016-12-14 19:59] VITALS: BP 138/71
== END 2016-12-14 20:04 ==
LOC: ERH 17:29
DX: G43.909 Migraine, unspecified, not intractable, without status migrainosus (principal)
CPT/HCPCS: 96372; J1885

== ENCOUNTER 2017-07-15 13:20 | Emergency (ER) | payer OTHER ==
[~2017-07-15] VITALS: Ht 167.6 cm; Wt 73.9 kg
[~2017-07-15 13:20] MED LIST changes: +ABILIFY15 M1 PO; +BENADRYL25 MG PO; +BENZTROPINE ME0.5 M1 PO; +CLONIDINE HCL0.3 M1 PO; +CYCLOBENZAPRINE5 M2 PO; +ESGIC CAPSULE1 EACH PO; +FIORICET 50-301 EACH PO; +HALOPERIDOL1 M1 PO; +IBUPROFEN400 M1 PO; +IBUPROFEN800 M1 PO; +IMITREX50 M1 PO; +KETOROLAC TROME10 M1 PO; +NORCO 5-325 TA1 EACH PO; +PRAZOSIN HCL1 M1 PO; +REGLAN10 M1 PO; +STROVITE ONE C1 EACH PO
[2017-07-15 13:50] VITALS: BP 165/98
--- NOTE | 2017-07-15 16:04 | CT SCAN REPORT ---
EXAMINATION: CT HEAD WITHOUT CONTRAST CLINICAL INFORMATION: Headache. History of tumor. COMPARISON: Multiple previous CT head with the most recent head CT of from 04/20/2017. TECHNIQUE: Contiguous axial imaging was performed from the skull base to vertex without intravenous administration of contrast. DLP: 614.64 mGy-cm FINDINGS: There is no evidence of acute intracranial hemorrhage or territorial infarction. No abnormal mass effect or midline shift is seen. Baum to white matter differentiation is well preserved. No extra-axial fluid collections are identified. Redemonstration of stable chronic parenchymal calcifications in the cortical and subcortical region of the left posterior parietal lobe (series 2 images 28 through 32). Unchanged left temporal encephalomalacia in the anterior aspect of the left middle cranial fossa. The ventricles are normal in size. Postsurgical changes of left frontoparietal craniotomy are again noted. The visualized paranasal sinuses and mastoid air cells are well-aerated. IMPRESSION: No acute intracranial pathology. Stable chronic changes.
== END 2017-07-15 16:58 | disposition admitted as inpatient to this hospital (09) ==
LOC: ERH 13:20
DX: R51 Headache (principal)
CPT/HCPCS: 99281

== ENCOUNTER 2017-10-16 18:53 | Emergency (ER) | payer OTHER ==
[~2017-10-16] VITALS: Ht 167.6 cm; Wt 82.6 kg
[2017-10-16 20:44] VITALS: BP 143/74
--- NOTE | 2017-10-16 21:11 | ED GENERAL ADULT ---
History of Present Illness General Chief Complaint: General Adult Stated Complaint: MIGRAINE,BACK PAIN Source: patient Exam Limitations: no limitations Vital Signs & Intake/Output Vital Signs & Intake/Output Vital Signs Date Time Temp Pulse Resp B/P B/P Pulse O2 O2 Flow FiO2 Mean Ox Delivery Rate 10/16 2044 78 18 143/74 100 Room Air 10/17 1915 96.7 88 18 98 Room Air Room Air Allergies Coded Allergies: amitriptyline (Severe, rash 12/14/16) Antihistamines - Alkylamine (COMBINED WITH DECONGESTANTS CAUSE ANAPHYLAXIS PER PT 09/20/17) Antihistamines - Ethanolamine (COMBINED WITH DECONGESTANTS CAUSE ANAPHYLAXIS PER PT 09/20/17) Antihistamines - Ethylenediamine (COMBINED WITH DECONGESTANTS CAUSE ANAPHYLAXIS PER PT 09/20/17) Antihistamines - Piperazine (COMBINED WITH DECONGESTANTS CAUSE ANAPHYLAXIS PER PT 09/20/17) Antihistamines - Piperidine (COMBINED WITH DECONGESTANTS CAUSE ANAPHYLAXIS PER PT 09/20/17) chlorpheniramine (From SUDAFED PE SINUS-ALLERGY) (ANAPHYLAXIS 09/20/17) diphenhydramine (MAKES HYPER AND COMBINED WITH DECONGESTANTS CAUSE ANAPHYLAXI ) phenylephrine (From SUDAFED PE SINUS-ALLERGY) (ANAPHYLAXIS 09/20/17) propoxyphene (VOMITING VIOLENTLY 12/14/16) pseudoephedrine (COMBINED WITH ANTIHISTAMINES CAUSE ANAPHYLAXIS PER PT 09/20/17 ) Uncoded Allergies: COLD MEDICATION / DECONGESTANTS (Severe, ANAPHYLACTIC SHOCK 02/06/11) ANTIHISTAMINE COMBINATIONS (ANAPHYLAXIS 09/20/17) Reconcile Medications Aripiprazole (Abilify) 15 MG TABLET 1 TAB PO DAILY MENTAL HEALTH (Reported) Aspirin (Ecotrin*) 81 MG TABLET.DR 1 TAB PO DAILY HEART HEALTH (Reported) Cyclobenzaprine HCl 5 MG TABLET 1 TAB PO TIDPRN PRN pain Ibuprofen 800 MG TABLET 1 TAB PO TID PAIN (Reported) Lamotrigine 100 MG TABLET 2.5 TAB PO DAILY MENTAL HEALTH (Reported) Lovastatin 40 MG TABLET 1 TAB PO QPM CHOLESTEROL (Reported) with food Methylprednisolone. (Medrol) 4 MG TAB.DS.PK 1 DP PO AD radiculopathy 6 on day 1 then reduce by one tablet daily until gone Mv,Min #10/FA/D3/Alip Acid/Lut (Strovite One Caplet) 1 MG-1,000 UNIT-15 MG-5 MG TABLET 1 TAB PO DAILY SUPPLEMENT (Reported) Niacin (Niaspan) 500 MG TAB.ER.24H 1 TAB PO QPM HEART (Reported) Oxycodone HCl/Acetaminophen (Percocet 5-325 MG Tablet) 5 MG-325 MG TABLET 1 TAB PO BID pain Oxycodone HCl/Acetaminophen (Percocet 5-325 MG Tablet) 5 MG-325 MG TABLET 1 TAB PO BID pain Pantoprazole Sodium 40 MG TABLET.DR 1 TAB PO DAILY GI (Reported) Prazosin HCl 1 MG CAPSULE 2 CAP PO QPM PTSD (Reported) Triage Note: PT TO ED WITH C/O LEFT LOWER BACK PAIN INTO "THE LEFT BUTT CHEEK". HX BULGING DISCS, TRIED, MOBIC, MOTRIN, ICE AND HEAT WITHOUT EFFECT. PT ALSO C/O "GETTING A MIGRAINE HEADACHE". Triage Nurses Notes Reviewed? yes Onset: Abrupt Duration: day(s): Timing: recent history HPI: 10/16/17 9:20 PM 52-year-old female presents to the emergency department with an exacerbation of migraine headaches and exacerbation of sciatica. The patient states that she has a history of left-sided sciatica. It has been bothering her for the past 4- 5 days. She also feels a start of one of her typical migraine headaches. 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 She has had prior CT scans of the head. She denies fever vomiting or other complaints. Past History Travel History Traveled to [place] past 21 day No Medical History Any Pertinent Medical History? 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 No Review of Systems Review of Systems Constitutional: Denies: fever. EENTM: Reports: see HPI. Respiratory: Denies: sputum production. Cardiovascular: Denies: chest pain. GI: Denies: abdominal pain. Genitourinary: Reports: no symptoms. Musculoskeletal: Reports: see HPI. Skin: Denies: rash. Neurological/Psychological: Reports: no symptoms. Hematologic/Endocrine: Reports: no symptoms. Immunologic/Allergic: Reports: no symptoms. Physical Exam Physical Exam General Appearance: well developed/nourished, alert, awake, anxious, mild distress Head: atraumatic, normal appearance Eyes: Bilateral: normal appearance, EOMI. Ears, Nose, Throat: normal pharynx Neck: normal inspection, supple, full range of motion Respiratory: normal breath sounds, chest non-tender, no respiratory distress Cardiovascular: regular rate/rhythm Peripheral Pulses: 4+ radial (R), 4+ radial (L) Gastrointestinal: non-tender Back: decreased range of motion Extremities: normal range of motion Neurologic/Psych: no motor/sensory deficits, awake, alert, oriented x 3 Skin: intact, normal color, warm/dry Comments: She has no focal weakness, no weakness to hip flexion or corporate sales representative strength. She does have left sided straight leg raising test + . She denied any bowel or bladder dysfunction. She had no papilledema, no nuchal rigidity. Core Measures ACS in differential dx? No CVA/TIA Diagnosis: No Sepsis Present: No Sepsis Focused Exam Completed? No Progress Differential Diagnoses I considered the following diagnoses in my evaluation of the patient: [ Intracranial bleed, meningitis, subdural hematoma, migraine, tension headache, epidural abscess, sciatica, disc herniation, lumbar strain] Plan of Care: Current Medications Sig/Martin Start time Last Medication Dose Stop Time Status Admin Sodium Chloride 1,000 ML BOLUS ONE 10/17 1999 AC 10/16 (Normal Saline 0.9%) 10/16 Initial ED EKG: none Departure Departure Disposition: HOME OR SELF CARE Condition: Stable Clinical Impression Primary Impression: Headache Secondary Impressions: Sciatica Referrals: Laith RAE,Ambrose Pineda (PCP/Family) Departure Forms: Customer Survey General Discharge Information Prescriptions: Current Visit Scripts Oxycodone HCl/Acetaminophen (Percocet 5-325 MG Tablet) 1 TAB PO BID #6 TAB Comments 10/16/17 The patient had significant relief of her sciatica. However she does still have a mild headache. She says this is consistent with her prior headaches. She says she has responded to Percocet in the past. 6 tablets were given for breakthrough pain. She'll continue her current medications and follow-up with her doctor on Thursday. Critical Care Note Critical Care Note Critical Care Time: non-applicable
[2017-10-16] MEDS ORDERED: PERCOCET 5-3251 EACH PO (21:16)
[2017-10-18] MEDS ORDERED: ROBAXIN-750750 M1 PO (23:43)
[2017-10-18] MEDS ORDERED: MEDROL4 M2 PO (23:43)
== END 2017-10-16 21:36 ==
LOC: ERH 18:53
DX: M54.42 Lumbago with sciatica, left side (principal); R51 Headache
CPT/HCPCS: 96361; 96374; 96375; J1885; J2765; J2930